=== PATIENT | female | born 1970 | race Two or more races ===

== ENCOUNTER 2024-10-12 13:45 | Emergency (ER) | payer MEDICARE, MEDICAID, SELFPAY ==
[2024-10-12 13:46] VITALS: BMI 34.2
[2024-10-12 14:04] VITALS: BP 149/84; PULSE 59; RESP 17; TEMP 36.7; O2SAT 98
[2024-10-12 14:48] LABS: Basophils # (Auto) 0.1 Thou/mm3 (0.0-0.2); Basophils % (Auto) 1 % (0-2.5); Eosinophils # (Auto) 0.3 Thou/mm3 (0.0-0.5); Eosinophils % (Auto) 4 % (0-10); Hematocrit 45.5 % (36.0-46.0); Hemoglobin 15.3 g/dL (12.0-16.0); Immature Granulocytes Auto 0.01 Thou/mm3 (0.00-0.00); Lymphocytes # (Auto) 3.8 Thou/mm3 (1.0-4.8); Lymphocytes % (Auto) 46 % (10-50); Mean Corpuscular HGB Conc 33.6 g/dl (31.0-37.0); Mean Corpuscular Hemoglobin 29.9 pg (25.0-35.0); Mean Corpuscular Volume 89 fL (80-100); Monocytes # (Auto) 0.7 Thou/mm3 (0.0-0.8); Monocytes % (Auto) 8 % (0-12); Neutrophils # (Auto) 3.4 Thou/mm3 (1.8-7.7); Neutrophils % (Auto) 41 % (37-80); Nucleated Red Blood Cell # 0.00 Thou/mm3 (0.00-0.00); Nucleated Red Blood Cell % 0 /100 WBC (0); Platelet Count 285 Thou/mm3 (140-440); RDW Standard Deviation 41.1 fL (36.4-46.3); Red Blood Count 5.12 Miln/mm3 (4.00-5.20); White Blood Count 8.4 Thou/mm3 (3.6-11.0)
--- NOTE | 2024-10-12 14:50 | EDNOTE_ITS ---
<Statement entered by Saundra Seth MD - 10/12/24 15:44> As co-signing physician, I was present and available for consult prn. I concur with the plan and care as documented by the midlevel provider. ED General RME/HPI General Chief complaint: General Adult/Misc Complain Stated complaint: BLEEDING HEMORRHOIDS Time Seen by Provider: 10/12/24 14:01 Source: patient Arrival date/time: 10/12/24 13:45 54-year-old female with no known medical history presents to the emergency room with a chief complaint of rectal bleeding x 1 week Mode of arrival: ambulatory Limitations: no limitations Related Data Home Medications ?Medication ?Instructions ?Recorded ?Confirmed ANTIFUNGAL CREAM 2 VAG BID ##0 05/16/09 Bisacodyl SUPP * (DULCOLAX SUPP *) 10 mg UT Q3DAYS ##0 05/16/09 FLEETS ENEMA UT Q 3 DAYS ##0 05/16/09 IMMODIUM 2 mg PO QID ##0 05/16/09 MILK OF MAGNESIA 30 ml PO Q 3 DAYS PRN ##0 Multivitamins (Thera Todd) 5 ml PO DAILY ##0 05/16/09 Nifedipine (Nifedipine Er) 90 mg PO HS ##0 05/16/09 calcium carbonate (Oyster Shell 500 mg PO TID ##0 04/26 04/06 Calcium) carisoprodol 350 mg tablet 350 mg PO QID ##0 05/16/09 cholecalciferol (vitamin D3) 50 200 iu PO TID ##0 04/26 2 mcg (2,000 unit) capsule (Vitamin D3) clonidine HCl 0.1 mg tablet 0.1 mg PO TID ##0 05/16/09 desmopressin 4 mcg/mL injection 0.5 mcg subcut BID ##0 05/16/09 solution (DDAVP) diphenhydramine HCl 12.5 mg/5 mL 25 mg PO QID ##0 04/26 04/06 oral liquid (Children's Benadryl Allergy) famotidine 20 mg tablet (Pepcid) DAILY ##0 05/16/09 fluconazole 200 mg tablet 400 mg PO DAILY ##0 05/16/09 (Diflucan) folic acid 1 mg tablet 1 mg PO DAILY ##0 05/16/09 ibuprofen 600 mg tablet (Motrin) 600 mg PO TID ##0 16/12 levothyroxine 75 mcg tablet 75 mcg PO QAM ##0 05/16/09 (Synthroid) miconazole nitrate 2 % vaginal VAG BID ##0 05/16/09 cream (Monistat 7) rifampin 300 mg capsule (Rimactane) 300 mg PO BID ##0 05/16/09 thiamine pyrophosphate 20 mg 10 mg PO DAILY ##0 tablet (Thiamilate) valsartan 80 mg tablet (Diovan) 80 mg PO BID ##0 05/16 zinc sulfate 50 mg zinc (220 mg) 220 mg PO DAILY ##0 0 05/16/09 tablet Previous Rx's ?Medication ?Instructions ?Recorded docusate sodium 100 mg capsule 100 mg PO QDAY #14 caps 10/12/24 (Colace) hydrocortisone 2.5 % topical cream 1 applic UT QDAY UT N hemorrhoids 10/12/24 with perineal applicator #30 grams (Anusol-HC) Allergies Allergy/AdvReac Type Severity Reaction Status Date / Time SULFA Allergy Intermediate Rash Uncoded 10/12/24 13:48 Review of Systems Review of Systems Systems Reviewed: All systems reviewed, normal except as documented Constitutional Constitutional: Reports system reviewed and no additional complaints, except as documented, Denies fatigue, Denies fever(s), Denies headache(s) and Denies weakness Eyes Eyes: Reports system reviewed and no additional complaints, except as documented, Denies blurry vision and Denies change in vision ENT Ears, Nose, Mouth, and Throat: Reports system reviewed and no additional complaints, except as documented, Denies otalgia, Denies headache(s), Denies nasal congestion, Denies throat swelling and Denies vertigo Cardiovascular Cardiovascular: Reports system reviewed and no additional complaints, except as documented, Denies chest pain, Denies dyspnea and Denies dyspnea on exertion Respiratory Respiratory: Reports system reviewed and no additional complaints, except as documented, Denies chest congestion, Denies cough, Denies dyspnea, Denies dyspnea on exertion and Denies wheezing Gastrointestinal Gastrointestinal: Reports system reviewed and no additional complaints, except as documented, Denies cramping, Denies nausea and Denies vomiting Genitourinary Genitourinary: Reports system reviewed and no additional complaints, except as documented Musculoskeletal Musculoskeletal: Reports system reviewed and no additional complaints, except as documented and Denies back pain Integumentary/Breasts Skin/Breast: Reports system reviewed and no additional complaints, except as documented and Denies wounds Neurologic Neurologic: Reports system reviewed and no additional complaints, except as documented, Denies confusion, Denies headache(s), Denies lack of coordination, Denies vertigo and Denies weakness Psychiatric Psychiatric: Reports system reviewed and no additional complaints, except as documented, Denies anxiety, Denies confusion, Denies depression, Denies paranoia, Denies suicidal ideation and Denies tactile hallucinations Endocrine Endocrine: Reports system reviewed and no additional complaints, except as documented and Denies fatigue Hematologic/Lymphatic Hematologic/Lymphatic: Reports system reviewed and no additional complaints, except as documented and Denies lymphadenopathy Allergic/Immunologic Allergic/Immunologic: Reports system reviewed and no additional complaints, except as documented, Denies throat swelling, Denies urticaria and Denies wheezing ED Exam General Limitations: Present no limitations General appearance: Present alert and in no apparent distress Head Head exam: Present atraumatic Eye Eye exam: Present normal appearance, PERRL and EOMI ENT ENT exam: Present normal exam, normal oropharynx and mucous membranes moist Neck Neck exam: Present normal inspection, full ROM and trachea midline Chest Chest inspection: Present normal inspection and symmetric chest wall rise Respiratory Respiratory exam: Present normal lung sounds bilaterally Cardiovascular Cardiovascular exam: Present regular rate, normal rhythm and normal heart sounds Abdominal Exam Abdominal exam: Present soft and normal bowel sounds; Absent tenderness Rectal Exam Rectal exam: Present normal inspection and hemorrhoids Extremities Exam Extremities exam: Present normal inspection and full ROM Back Exam Back exam: Present normal inspection and full ROM Neurological Exam Neurological exam: Present alert, oriented X3 and CN II-XII intact Psychiatric Psychiatric exam: Present normal affect and normal mood Skin Skin exam: Present warm, dry, intact and normal color Course Quality Measures none Orders Category Date Time Status CBC Stat Lab 10/12/24 14:35 Completed CMP [Comprehensive Metabolic Panel] Stat Lab 10/12/24 14:35 Completed Vital Signs Vital signs: Vital Signs Temperature 98.0 F 10/12/24 14:04 Pulse Rate 59 L 10/12/24 14:04 Respiratory Rate 17 10/12/24 14:04 Blood Pressure 149/84 H 10/12/24 14:04 Pulse Oximetry (%) 98 10/12/24 14:04 Oxygen Delivery Method Room Air 10/12/24 14:04 Discharge Plan Plan Patient Disposition: HOME (Self Care) Discharge Disposition comment: Stable Prescriptions/Referrals Prescriptions/Med Rec: New hydrocortisone [Anusol-HC] 2.5 % cream with perineal applicator 1 applic UT QDAY PRN (Reason: hemorrhoids) Qty: 30 0RF docusate sodium [Colace] 100 mg capsule 100 mg PO QDAY Qty: 14 0RF No Action ANTIFUNGAL CREAM 2 VAG BID Qty: 0 carisoprodol 350 MG tablet 350 mg PO QID Qty: 0 diphenhydramine HCl [Children's Benadryl Allergy] 12.5 MG/5 ML liquid 25 mg PO QID Qty: 0 clonidine HCl 0.1 MG tablet 0.1 mg PO TID Qty: 0 desmopressin [DDAVP] 4 MCG/ML solution 0.5 mcg Sub-Q BID Qty: 0 fluconazole [Diflucan] 200 MG tablet 400 mg PO DAILY Qty: 0 miconazole nitrate [Monistat 7] 45 GM cream VAG BID Qty: 0 valsartan [Diovan] 80 MG tablet 80 mg PO BID Qty: 0 thiamine pyrophosphate [Thiamilate] 20 MG tablet 10 mg PO DAILY Qty: 0 levothyroxine [Synthroid] 75 MCG tablet 75 mcg PO QAM Qty: 0 zinc sulfate 220 MG tablet 220 mg PO DAILY Qty: 0 rifampin [Rimactane] 300 MG capsule 300 mg PO BID Qty: 0 famotidine [Pepcid] 20 MG tablet DAILY Qty: 0 calcium carbonate [Oyster Shell Calcium] 1 TAB tablet 500 mg PO TID Qty: 0 folic acid 1 MG tablet 1 mg PO DAILY Qty: 0 ibuprofen [Motrin] 600 MG tablet 600 mg PO TID Qty: 0 cholecalciferol (vitamin D3) [Vitamin D3] 2,000 UNIT capsule 200 iu PO TID Qty: 0 Bisacodyl SUPP * (DULCOLAX SUPP *) 10 MG/SUPP.RECT SUPP.RECT 10 mg UT Q3DAYS Qty: 0 FLEETS ENEMA UT Q 3 DAYS Qty: 0 IMMODIUM 2 mg PO QID Qty: 0 MILK OF MAGNESIA 30 ml PO Q 3 DAYS PRN Qty: 0 Multivitamins (Thera Todd) 118 ML liquid 5 ml PO DAILY Qty: 0 Nifedipine (Nifedipine Er) 90 MG/BOTTLE TAB.OSM.24 90 mg PO HS Qty: 0 Referrals: No Primary/Family,Physician [Primary Care Provider] - In 1 week Problem List Clinical Impression: Hemorrhoids Patient/Caregiver Discharge Instructions Education Materials: ED Hemorrhoids Additional Instructions: Please follow-up with your primary care provider in the next 24 to 48 hours Your blood work was within normal limits. Your levels are in an appropriate range Medication was sent to your pharmacy to help you with your hemorrhoids For any evidence of worsening signs or symptoms return to the emergency room immediately Print Language: Bur[place]ian Stand Alone Forms: [employer] Award Info., Patient Portal Info Letter PA/SPANISH INTERPRETER/TRANSLATOR Supervising Physician PA/SPANISH INTERPRETER/TRANSLATOR Supervising Physician: Dr. SETH [facility] Narrative MDM hospital course: 54-year-old female with no known medical history presents to the emergency room with a chief complaint of rectal bleeding x 1 week Patient is hemodynamically stable and in no apparent distress Physical examination shows an external hemorrhoid to the left side of the patient's anus. The patient has a history of a stroke and is sitting on a chair multiple hours a day. CBC CMP were negative for any anemia or any electrolyte imbalance The patient was educated to follow-up with her primary care provider for referral to a cutter apprentice hand for a colonoscopy for further management if her rectal bleeding continues Stool softeners were sent to the patient's pharmacy Patient was discharged and educated to follow-up with primary care provider in the next 24 to 48 hours and return to the emergency room for any evidence of worsening signs or symptoms Clinical Information Provided by none Medical Records Reviewed None Meds/Rx Considered, not Ordered None Labs/Rad/Tests considered, not Ordered None Chronic Illness/Social Conditions which may negatively complicate care or outcome(s)-explain: None or not applicable EKG EKG not done Lab Interpretation Labs: none Imaging Imaging interpretation: none Medication Administration(s) none Diagnosis Differential diagnosis: Hemorrhoids/colon tumor/GI bleed/anal fissure Differential dx and/or dx ruled out: GI bleed/colon tumor Most likely dx, and/or detailed dx discussion: Hemorrhoids Dispositon Disposition: Discharge Home
[2024-10-12 15:07] LABS: Alanine Aminotransferase 35 U/L (10-49); Albumin, Serum 4.9 gm/dL (3.5-5.0); Albumin/Globulin Ratio 2.0 (1.2-2.2); Alkaline Phosphatase 100 U/L (46-116); Anion Gap 10 (7-16); Aspartate Amino Transferase 29 U/L (0-34); BUN/Creatinine Ratio 13 Ratio (12-20); Bilirubin,Total 0.8 mg/dL (0.3-1.2); Blood Urea Nitrogen 9 mg/dL (9-23); Calcium 10.6 mg/dL (8.3-10.6); Calcium (Corrected) 10.6 mg/dL (8.5-10.1); Carbon Dioxide 25.1 mMol/L (20.0-31.0); Chloride 101 mMol/L (98-107); Creatinine (Component) 0.7 mg/dL (0.6-1.3); Estimated Creatinine Clearance 84.7 mL/min (>60); Globulin 2.5 gm/dL (2.3-3.5); Glucose 109 mg/dL (74-106); Osmolality,Calculated 271 (275-295); Potassium 4.1 mMol/L (3.4-5.1); Sodium 136 mMol/L (136-145); Total Protein 7.4 gm/dL (5.7-8.2); eGFR > 60 See Note
== END 2024-10-12 16:54 | disposition home or self-care (01) ==
PROVIDERS: Nurse Practitioner Family; Emergency Provider Emergency Medicine
DX: K64.9 Unspecified hemorrhoids (principal)
CPT/HCPCS: 36415; 80053; 85025; 99283